=== PATIENT | female | born 1995 | race Caucasian/White ===

== ENCOUNTER 2021-12-10 10:15 | Observation (INO) | payer OTHER ==
[2021-12-10 10:32] VITALS: BP 132/75; PULSE 110
== END 2021-12-10 11:10 | disposition home or self-care (01) ==
LOC: OB 10:15
PROVIDERS: ADMIT Obstetrics & Gynecology; ATTEND Obstetrics & Gynecology
DX: Z34.03 Encounter for supervision of normal first pregnancy, third trimester (principal); Z3A.37 37 weeks gestation of pregnancy
CPT/HCPCS: G0378